=== PATIENT | male | born 1950 | race Asian ===

== ENCOUNTER 2017-09-14 19:49 | Emergency (ER) | payer OTHER ==
[~2017-09-14] VITALS: Ht 180.3 cm; Wt 95.0 kg
[2017-09-14] MEDS ORDERED: PLEASE ENTER ALLERGIES MC SCH ×2 (20:30)
[2017-09-14] MEDS ORDERED: SODIUM CHLORIDE FLUSH 10ML SYR IVF ONE (20:30)
[2017-09-14] MEDS ORDERED: ACETAMINOPHEN 500 MG TABLET PO ONE (20:30)
[2017-09-14] MEDS ORDERED: SODIUM CHLORIDE 0.9% 1,000ML IVBOLUS ONE (20:30)
[2017-09-14] MEDS ORDERED: ONDANSETRON 2MG/ML, 2ML IVPush ONE (20:30)
[2017-09-14 20:31] LABS: PATH.CAST-FLAG NOT PRESENT; SPERM-FLAG NOT PRESENT; SRC-FLAG NOT PRESENT; XTAL-FLAG NOT PRESENT; YLC-FLAG NOT PRESENT
[2017-09-14 20:49] LABS: HEMOGLOBIN 16.2 g/dL (13.7-18.0); WHITE BLOOD COUNT 14.2 x10^3/uL (3.4-10)
[2017-09-14 20:50] LABS: ASPARTATE AMINO TRANSFERASE 23 U/L (15-37); BLOOD UREA NITROGEN 24 mg/dL (7-18)
[2017-09-14 20:50] LABS: RAPID INFLUENZA A Negative (Negative); RAPID INFLUENZA B Negative (Negative)
[2017-09-14] MEDS ORDERED: ACETAMINOPHEN 500 MG TABLET ONE (21:37)
[2017-09-14] MEDS ORDERED: CEFTRIAXONE PMX 1GM/50ML 50 ML ONE (21:37)
[2017-09-14] MEDS ORDERED: ONDANSETRON 2MG/ML, 2ML ONE (21:38)
[2017-09-14 21:51] VITALS: BP 163/105
[2017-09-14] MEDS ORDERED: CEFTRIAXONE PMX 1GM/50ML 50 ML IV ONE (22:00)
== END 2017-09-14 22:05 | disposition home or self-care (01) ==
LOC: ED 21:59
DX: R50.9 Fever, unspecified (principal); R53.1 Weakness; E78.5 Hyperlipidemia, unspecified; I10 Essential (primary) hypertension; E11.21 Type 2 diabetes mellitus with diabetic nephropathy; M10.9 Gout, unspecified; Z79.84 Long term (current) use of oral hypoglycemic drugs; Z90.49 Acquired absence of other specified parts of digestive tract; Z90.5 Acquired absence of kidney
CPT/HCPCS: 36415; 71020; 74176; 80053; 81001; 83605; 83880; 84145; 85025; 85610; 87040; 87077; 87086; 87400; 93005; 96361; 96365; 99285; J0696; J7030